=== PATIENT | female | born 2000 | race Caucasian/White ===

== ENCOUNTER 2020-02-14 20:25 | Emergency (ER) | payer OTHER ==
[2020-02-14 20:33] VITALS: RESP 18; TEMP 98.7
[2020-02-14] MEDS ORDERED: ACET/COD 300 MG/30 MG STARTER PACK 6 TAB BTL PO STA (20:40)
[2020-02-14] MEDS ORDERED: KETOROLAC 30 MG/ML 1 ML VIAL IM STA (20:40)
--- NOTE | 2020-02-14 21:28 | XR ---
EXAMINATION TYPE: XR knee complete LT DATE OF EXAM: 02/14/2020 COMPARISON: None HISTORY: Fall, pain TECHNIQUE: Three-view left knee FINDINGS: No acute fractures or dislocations are evident. Joint spaces are preserved. No joint effusi on is evident. IMPRESSION: 1. Normal three-view left knee
--- NOTE | 2020-02-14 21:46 | ED ---
Lower Extremity Injury HPI - General Chief Complaint: Extremity Injury, Lower Stated Complaint: Fall, knee pain Time Seen by Provider: 02/14/20 20:32 Source: patient, EMS Mode of arrival: EMS Limitations: no limitations - History of Present Illness Initial Comments: 19-year-old female patient arrives to the emergency department via EMS for left knee injury. Patient states that she was walking in her usual fashion when her knee gave out causing her to fall twisting the knee. Patient states she had immediate onset of severe pain. Patient states she's had surgery to the right knee, no history of injury or surgery to the left. Patient is reporting pain to the anterior knee just above the patella. States the pain is radiating down her leg. She denies numbness or tingling to the foot. She denies hitting her head or losing consciousness with the fall. Denies taking any medication for symptoms. Patient denies any headache, neck pain, back pain, chest pain, shortness of breath, dizziness, weakness, abdominal pain, nausea, vomiting, or difficulties with bowel movements or urination. - Related Data Home Medications Medication Instructions Recorded Confirmed ARIPiprazole [Abilify] 5 mg PO DAILY 03/28/16 03/28/16 Sertraline [Zoloft] 50 mg PO DAILY 03/28/16 03/28/16 Previous Rx's Medication Instructions Recorded Ibuprofen [Motrin] 600 mg PO Q8HR PRN #30 tab 02/14/20 Allergies Allergy/AdvReac Type Severity Reaction Status Date / Time No Known Allergies Allergy Verified 03/28/16 12:35 Review of Systems ROS Statement: Those systems with pertinent positive or pertinent negative responses have been documented in the HPI. ROS Other: All systems not noted in ROS Statement are negative. Past Medical History Past Medical History: No Reported History History of Any Multi-Drug Resistant Organisms: None Reported Past Surgical History: Orthopedic Surgery Additional Past Surgical History / Comment(s): right knee Past Psychological History: Depression, PTSD Smoking Status: Current every day smoker Past Alcohol Use History: Occasional Past Drug Use History: Marijuana General Exam Limitations: no limitations General appearance: alert, in no apparent distress, other (This is a well- developed, well-nourished adult female patient in no acute distress. Vital signs upon presentation are temperature 98.7F, pulse 81, respirations 18, blood pressure 121/72, pulse ox 100% on room air) Eye exam: Present: normal appearance, PERRL, EOMI. Absent: scleral icterus, conjunctival injection, periorbital swelling ENT exam: Present: normal exam, normal oropharynx, mucous membranes moist Respiratory exam: Present: normal lung sounds bilaterally. Absent: respiratory distress, wheezes, rales, rhonchi, stridor Cardiovascular Exam: Present: regular rate, normal rhythm, normal heart sounds. Absent: systolic murmur, diastolic murmur, rubs, gallop, clicks Extremities exam: Present: normal inspection, full ROM, tenderness (Left anterior knee and posterior knee. ), normal capillary refill, other (There is mild soft tissue swelling over the left knee. Skin to the left leg is pink, warm, dry. Cap refills less than 3 seconds. Pedal and posttibial pulses are 2+ and equal bilaterally.). Absent: pedal edema, joint swelling, calf tenderness Neurological exam: Present: alert, oriented X3, CN II-XII intact Psychiatric exam: Present: normal affect, normal mood Skin exam: Present: warm, dry, intact, normal color. Absent: rash Course Vital Signs 02/14/20 02/14/20 20:30 22:21 Temperature 98.7 F Pulse Rate 81 71 Respiratory 18 18 Rate Blood Pressure 121/72 122/71 O2 Sat by Pulse 100 98 Oximetry Medical Decision Making - Medical Decision Making 19-year-old female patient presented to the emergency department today for evaluation of left knee injury. Physical examination did reveal mild soft tissue swelling tenderness over the anterior posterior aspect of the knee. Neurovascular status was intact. X-ray was obtained and was unremarkable. We did discuss possibility of a tendon or ligament injury. Patient is placed in a knee immobilizer and instructed to follow-up with orthopedic specialty for further evaluation as soon as possible. She is given prescription for ibuprofen. She is instructed to follow up with her primary care physician for recheck in 1-2 days. Return parameters were discussed in detail. She verbalizes understanding and agrees with this plan. - Radiology Data Radiology results: report reviewed, image reviewed 3 views of the left knee are obtained. Report was reviewed in its entirety. Impression by Dr. Esquivel shows normal 3 view of the left knee. Disposition Clinical Impression: Strain of left knee Disposition: HOME SELF-CARE Condition: Good Instructions (If sedation given, give patient instructions): Knee Sprain (ED) Additional Instructions: Use knee immobilizer for comfort and support when ambulating. Apply ice to the knee 20 minutes at a time at least 4x daily. Take medication as directed. Follow-up with auditing specialist for further evaluation as soon as possible. Return to the emergency department immediately for any new, worsening, or concerning symptoms. Prescriptions: Ibuprofen [Motrin] 600 mg PO Q8HR PRN #30 tab PRN Reason: Pain Is patient prescribed a controlled substance at d/c from ED?: No Referrals: June Dong DO [Doctor of Osteopathic Medicine] - 1-2 days Time of Disposition: 21:46
[2020-02-14 22:30] VITALS: BP 122/71; PULSE 71
== END 2020-02-14 22:30 | disposition home or self-care (01) ==
LOC: EC 20:25
DX: S86.812A Strain of other muscle(s) and tendon(s) at lower leg level, left leg, initial encounter (principal); F32.9 Major depressive disorder, single episode, unspecified; F43.10 Post-traumatic stress disorder, unspecified; F17.200 Nicotine dependence, unspecified, uncomplicated; Z79.899 Other long term (current) drug therapy; X50.1XXA Overexertion from prolonged static or awkward postures, initial encounter; Y93.01 Activity, walking, marching and hiking
CPT/HCPCS: 99284; 96372; 73562; L1830; J1885

== ENCOUNTER → 2020-10-21 | Outpatient (CLI) | payer OTHER ==
--- NOTE | 2020-10-21 15:19 | US ---
EXAMINATION TYPE: US OB >= 14 wk fetus DATE OF EXAM: 10/21/2020 COMPARISON: CLINICAL HISTORY: Z36 CONFIRM DATES Confirm dates. Patient has not had a prior ultrasound. No pain o r spotting. TECHNIQUE: Transabdominal (TA) GESTATIONAL AGE / DATING Dates by LMP: (22 weeks/5 days) EDC: 02/19/2021 Dates by First Scan: No previous this is first scan Dates by Current Scan: (17 weeks/4 days) EDC: 03/27/2021 Beta HCG (if available): Not available at this time SURVEY IUP: Single PLACENTA: Posterior with hypoechoic lesion, possible placental doty= 2.6 x 2.7 x 1.6 cm PREVIA: No Previa. The inferior placental margin measures 3.2 cm from the internal cervical os. NANCY: 10.9 cm Low normal CERVICAL LENGTH (transabdominal: norm > 3.0cm): 3.6 cm BIOMETRY PRESENTATION: Vertex BPD: 4.2 cm 18 weeks / 4 days HC: 14.5 cm 17 weeks / 5 days AC: 11.4 cm 17 weeks / 1 days FL: 2.3 cm 17 weeks / 0 days ESTIMATED WEIGHT IN GRAMS: 183.3 grams ESTIMATED WEIGHT IN LBS/OZ: 0 lbs. 6 oz. EFW%: 3% HC/AC: 1.27 High normal FL/AC: 20.3 HEART RATE: 150 bpm RHYTHM: Normal Scoreboard Operator notes: Single live IUP measuring 17 weeks 4 days. IMPRESSION: 1. Single live intrauterine with estimated gestational age of 22 weeks 5 days by LMP. [facility] biometry is smaller and discordant at 17 weeks 4 days. 2. Posterior placenta without previa. However, there is a 2.7 cm hypoechoic area superiorly and towar ds the right located within the placenta. A placental doty, chorioangioma, and area of old placental hemorrhage are differential considerations. Follow-up recommended to reassess. 4. Given the discordance with the patient's LMP, corresponding EFW percentile measured at <3%, low no rmal NANCY, and high normal HC/AC, short interval follow-up is recommended. 5. In addition, complete survey recommended at 18-20 weeks.
== END | disposition home or self-care (01) ==
LOC: RADUSWWP 13:42
PROVIDERS: ATTEND Obstetrics & Gynecology
DX: O28.3 Abnormal ultrasonic finding on antenatal screening of mother (principal); Z3A.22 22 weeks gestation of pregnancy
CPT/HCPCS: 76805

== ENCOUNTER 2021-03-23 06:07 | Inpatient (IN) | payer OTHER ==
[2021-03-23] MEDS ORDERED: TERBUTALINE 1 MG/ML VIAL SQ PRN (07:05)
[2021-03-23] MEDS ORDERED: CARBOPROST TROMETHAMINE 250 MCG/ML 1 ML AMP IM PRN (07:05)
[2021-03-23] MEDS ORDERED: OXYTOCIN 10 UNIT/ML 1 ML VIAL IM PRN (07:05)
[2021-03-23] MEDS ORDERED: LIDOCAINE 0.5% (PF) 5 MG/ML (50 ML SDV) SQ PRN (07:05)
[2021-03-23] MEDS ORDERED: METHYLERGONOVINE 0.2 MG/ML 1 ML AMP IM PRN (07:05)
[2021-03-23] MEDS ORDERED: OXYTOCIN 30 UNITS/500 ML NS 30 UNIT in SALINE 1 500ML.BAG IV SCH ×2 (07:15→23:45)
[2021-03-23 07:29] LABS: Basophils # (A) 0.1 k/uL (0-0.2); Basophils % (A) 0 %; Eosinophils # (A) 0.1 k/uL (0-0.7); Eosinophils % (A) 1 %; HCT 34.8 % (34.0-46.0); HGB 12.1 gm/dL (11.4-16.0); Lymphocytes % (A) 20 %; MCHC 34.7 g/dL (31.0-37.0); MCV 83.6 fL (80.0-100.0); Mean Platelet Volume 6.9; Monocytes # (A) 0.7 k/uL (0-1.0); Monocytes % (A) 5 %; Neutrophils # (A) 11.1 k/uL (1.3-7.7); Neutrophils % (A) 73 %; Platelet Count 345 k/uL (150-450); RBC 4.16 m/uL (3.80-5.40); RDW 14.5 % (11.5-15.5); WBC 15.1 k/uL (4.0-11.0)
[2021-03-23] MEDS ORDERED: BUTORPHANOL 1 MG/ML 1 ML VIAL IV PRN (09:55)
[2021-03-23] MEDS ORDERED: fentaNYL (PF) 50 MCG/ML 5 ML AMP ONE (12:12)
[2021-03-23] MEDS ORDERED: ePHEDrine SULFATE/0.9% NACL/PF 50 MG/5 ML SYRINGE IV ONE (12:12)
[2021-03-23] MEDS ORDERED: ROPIVACAINE 5MG/ML 20ML VIAL ONE (12:12)
[2021-03-23] MEDS ORDERED: SODIUM CHLORIDE 0.9% 100 ML BAG ONE (12:12)
[2021-03-23] MEDS ORDERED: ROPIVACAINE 100 MG, fentaNYL (PF). 200 MCG in SODIUM CHLORIDE 0.9% 76 ML EPIDURAL ONE (13:30)
--- NOTE | 2021-03-23 16:30 | P.HPOB ---
History of Present Illness H&P Date: 03/23/21 Chief Complaint: Induction of Labor 20 year old presents at 39 weeks 3 days for induction of labor. Her cervix is 2/70/-1 and she is elmer every few minutes. heart tones 140 with moderate variability and reactive. Review of Systems All systems: negative Constitutional: Denies chills, Denies fever Eyes: denies blurred vision, denies pain Ears, nose, mouth and throat: Denies headache, Denies sore throat Cardiovascular: Denies chest pain, Denies shortness of breath Respiratory: Denies cough Gastrointestinal: Denies abdominal pain, Denies diarrhea, Denies nausea, Denies vomiting Genitourinary: Denies dysuria, Denies hematuria Musculoskeletal: Denies myalgias Integumentary: Denies pruritus, Denies rash Neurological: Denies numbness, Denies weakness Psychiatric: Denies anxiety, Denies depression Endocrine: Denies fatigue, Denies weight change Past Medical History Past Medical History: No Reported History History of Any Multi-Drug Resistant Organisms: None Reported Past Surgical History: Orthopedic Surgery Additional Past Surgical History / Comment(s): right knee Past Anesthesia/Blood Transfusion Reactions: No Reported Reaction Past Psychological History: No Psychological Hx Reported Smoking Status: Never smoker Past Alcohol Use History: None Reported, Occasional Past Drug Use History: None Reported - Past Family History Mother Family Medical History: No Reported History Medications and Allergies Home Medications Medication Instructions Recorded Confirmed Type No Known Home Medications 03/23/21 03/23/21 History Allergies Allergy/AdvReac Type Severity Reaction Status Date / Time No Known Allergies Allergy Verified 03/23/21 06:56 Exam Osteopathic Statement: *. No significant issues noted on an osteopathic structural exam other than those noted in the History and Physical/Consult. Vital Signs Temp Pulse Resp BP Pulse Ox 03/23/21 06:55 97.1 F L 96 16 124/72 96 Intake and Output 03/23/21 03/23/21 03/23/21 06:59 14:59 22:59 Output Total 500 Balance -500 Output: Urine 500 Other: # Voids 3 Weight 108.409 kg HEart: RRR Lungs: CTAB Abdomen: soft, nontender Extremeties: neg vidhi's Results Result Diagrams: 03/23/21 06:55 Abnormal Lab Results - Last 24 Hours (Table) 03/23/21 Range/Units 06:55 WBC 15.1 H (4.0-11.0) k/uL Neutrophils # 11.1 H (1.3-7.7) k/uL Assessment and Plan (1) Encounter for induction of labor Current Visit: Yes Status: Acute Code(s): Z34.90 - ENCNTR FOR SUPRVSN OF NORMAL , UNSP, UNSP TRIMESTER SNOMED Code(s): 183103674 Plan: 1. amniotomy and pitocin for induction of labor 2. anticipate normal vaginal delivery
[2021-03-23] MEDS: LACTATED RINGERS 1,000 ML IV SCH ×2 (19:07→23:58)
[2021-03-23] MEDS ORDERED: AMPICILLIN 2,000 MG in SODIUM CHLORIDE 0.9% 100 ML IVPB STA (19:25)
[2021-03-23] MEDS ORDERED: CITRIC ACID-SODIUM CITRATE 15 ML CUP PO ONE (22:19)
[2021-03-23] MEDS ORDERED: ONDANSETRON 4 MG/2 ML VIAL ONE (23:02)
[2021-03-23] MEDS ORDERED: HYDROmorphone (PF) 1 MG/ML ONE (23:02)
[2021-03-23] MEDS ORDERED: OXYTOCIN 30 UNITS/500 ML NS BAG IV ONE (23:02)
[2021-03-23] MEDS ORDERED: NALBUPHINE 10 MG/ML (1 ML AMP) ONE (23:02)
[2021-03-23] MEDS ORDERED: KETOROLAC 15 MG/ML 1 ML VIAL ONE (23:02)
[2021-03-23] MEDS ORDERED: MORPHINE SULFATE (PF) 0.3 MG/0.3 ML SYR ONE (23:02)
[2021-03-23] MEDS ORDERED: diphenhydrAMINE 25 MG CAP PO PRN (23:39)
[2021-03-23] MEDS ORDERED: SIMETHICONE 80 MG CHEWABLE PO PRN (23:39)
[2021-03-23] MEDS ORDERED: LANOLIN CREAM 5 GM TUBE TOPICAL PRN (23:39)
[2021-03-23] MEDS ORDERED: diphenhydrAMINE 50 MG/ML 1 ML VIAL IVP PRN ×2 (23:39)
[2021-03-23] MEDS ORDERED: METOCLOPRAMIDE 5 MG/ML 2 ML VIAL IVP PRN (23:39)
[2021-03-23] MEDS ORDERED: ZOLPIDEM 5 MG TAB PO PRN (23:39)
[2021-03-23] MEDS ORDERED: diphenhydrAMINE 50 MG CAP PO PRN (23:39)
[2021-03-23] MEDS ORDERED: NALOXONE 0.4 MG/ML 1 ML VIAL IV PRN (23:39)
[2021-03-23] MEDS ORDERED: ONDANSETRON 4 MG/2 ML VIAL IVP PRN (23:39)
--- NOTE | 2021-03-23 23:47 | P.OP ---
Date of Procedure: 03/23/21 Preoperative Diagnosis: 1. at 39 weeks 3 days 2. maternal fever 3. failure to progress 4. tachycardia Postoperative Diagnosis: 1. at 39 weeks 3 days 2. maternal fever 3. failure to progress 4. tachycardia Procedure(s) Performed: Primary low transverse Anesthesia: epidural Surgeon: Renetta Christianson Html Web Developer #1: Julisa Gore Estimated Blood Loss (ml): 500 IV fluids (ml): 1,000 Urine output (ml): 200 Pathology: none sent Condition: stable Disposition: floor Indications for Procedure: 20-year-old presents at 39 weeks and 3 days for induction of labor. Her cervix was 1-2 cm dilated, 70% effaced, -1 station. She is elmer irregularly. heart tones 140 with moderate variability and reactive. Amniotomy was performed around 7:30 in the morning and clear fluid noted. Pitocin was also started. She progressed slowly throughout the day when she is uncomfortable she did get an epidural. Her cervix dilated to 6 cm but didn't dilate any further despite adequate contractions for more than 2 hours. She also started to have a fever up to 100.5 and the baby showed some tachycardia in the 160s. Informed consent was obtained and section was called. Operative Findings: Viable male Apgars 8, 9, weight 6 lbs. 9 oz. Description of Procedure: Patient was taken to the operating room where spinal anesthesia was found be adequate. She was prepped and draped in normal sterile fashion in dorsal supine position with a leftward tilt. Pfannenstiel skin incision was made the scalpel and carried through to the underlying layer of fascia with the scalpel. Fascia was incised in midline and carried bilaterally with the Moss scissors. The superior aspect of the fascial incision was grasped with Reba clamps elevated and the underlying rectus muscles dissected off with the Moss's. Attention was then turned to inferior aspect of same incision which in a similar fashion was grasped tented up and the underlying rectus muscles dissected off with the Moss's. The rectus muscles were the midline and the peritoneum was identified tented up and entered sharply with the scalpel. The incision was extended superiorly and inferiorly with good visualization of the bladder. The bladder blade was inserted and the vesicouterine peritoneum was incised the Metzenbaums then carried bilaterally and bladder flap created digitally. A low transverse incision was then made on the uterus with the scalpel. This was carried bilaterally and digital manner. Infant's head delivered atraumatically, nose and mouth bulb suctioned, cord clamped and cut, infant handed off to waiting nurses. Apgars 8,9, weight 6 lbs. 9 oz. Placenta delivered manually, intact with three-vessel cord. The uterus is exteriorized and cleared of all clots and debris. The uterine incision was closed with 0 Vicryl in a running locked fashion. Second layer of the same sutures used in imbricating fashion to obtain excellent hemostasis. Both ovaries and tubes appeared normal. The uterus was placed back into the abdomen. The peritoneum was reapproximated using 2-0 Vicryl in a running fashion. The muscles were reapproximated using 2- 0 Vicryl in interrupted fashion. The fascia was reapproximated using 0 Vicryl in a running fashion. The subcutaneous tissues closed with 3-0 Vicryl running fashion. The skin was closed prisca. Patient tolerated the procedure well, sponge and instrument counts were correct times 2 and she was taken to the recovery room in stable condition.
[2021-03-24] MEDS ORDERED: AMPICILLIN 1,000 MG in SODIUM CHLORIDE 0.9% 50 ML IVPB SCH ×2
[2021-03-24 06:12] LABS: Basophils # (A) 0.1 k/uL (0-0.2); Basophils % (A) 0 %; Eosinophils % (A) 0 %; HCT 30.3 % (34.0-46.0); HGB 10.2 gm/dL (11.4-16.0); Lymphocytes # (A) 2.2 k/uL (1.0-4.8); Lymphocytes % (A) 12 %; MCH 28.7 pg (25.0-35.0); MCHC 33.8 g/dL (31.0-37.0); MCV 84.9 fL (80.0-100.0); Monocytes # (A) 0.6 k/uL (0-1.0); Monocytes % (A) 3 %; Neutrophils # (A) 15.1 k/uL (1.3-7.7); Neutrophils % (A) 83 %; Platelet Count 288 k/uL (150-450); RBC 3.57 m/uL (3.80-5.40); RDW 14.7 % (11.5-15.5); WBC 18.2 k/uL (4.0-11.0)
--- NOTE | 2021-03-24 08:15 | P.PN ---
Progress Note - Text Progress Note Date: 03/24/21 (161) Anesthesia Postop day 1 Subjective: Status Post section with Duramorph. Patient seen and examined. Doing well without complaint. VAS 2 out of 10. Nausea vomiting or pruritus. denies fever. Gross lower extremity strength intact. . Without apparent anesthetic complications. Objective: Vital signs reviewed Heart: Regular Rate Lungs: Good chest excursion Abdomen: Appears nondistended Assessment: Status post with Duramorph postop day 1 Plan: Continue current care with your medical management. Anticipated and the Duramorph around midnight tonight, you may see increased pain needs around this time.
[2021-03-24] MEDS: KETOROLAC 15 MG/ML 1 ML VIAL IVP SCH ×2 (09:01→15:08)
--- NOTE | 2021-03-24 09:01 | P.PNOBGPC ---
Subjective - Subjective Principal diagnosis: S/P 1*LTCS POD #1 Interval history: Patient seen and examined. Denies nausea, vomiting, chest pain, shortness of breath or any calf pain. She isn't having some difficulty with dizziness this moment getting out of bed but only in less than 12 hours since delivery. Patient reports: Reports appetite normal, Reports voiding normally, Reports pain well controlled [place]: doing well Objective - Vital Signs Latest vital signs: Vital Signs Temp Pulse Resp BP Pulse Ox 03/24/21 04:00 98.7 F 97 16 106/55 03/24/21 01:40 97.0 F L 101 H 16 102/57 96 03/24/21 01:10 105 H 16 110/61 95 03/24/21 00:40 111 H 16 115/63 95 03/24/21 00:25 93 16 107/56 96 03/24/21 00:10 88 16 105/58 93 L 03/23/21 23:55 98 16 114/59 93 L 03/23/21 23:40 99.4 F 90 16 110/53 94 L Intake and Output 03/23/21 03/24/21 03/24/21 22:59 06:59 14:59 Intake Total 16.45 Output Total 200 125 Balance -200 -108.55 Intake: Intake, IV Titration 16.45 Amount Oxytocin 30 Units/500 ml 16.45 Ns 30 unit In Saline 1 500ml.bag @ Per Protocol IV .Q0M [facility] Rx#:[id number] Output: Urine 200 125 - Exam Lungs: bilateral: normal Chest: Normal S1, Normal S2 Extremities: Present: normal Abdomen: Present: normal appearance, soft. Absent: distention, tenderness Incision: Present: normal, dry, intact Uterus: Present: normal, firm - Labs Labs: Abnormal Lab Results - Last 24 Hours (Table) 03/24/21 Range/Units 05:40 WBC 18.2 H (4.0-11.0) k/uL RBC 3.57 L (3.80-5.40) m/uL Hgb 10.2 L (11.4-16.0) gm/dL Hct 30.3 L (34.0-46.0) % Neutrophils # 15.1 H (1.3-7.7) k/uL Assessment and Plan (1) Encounter for induction of labor Current Visit: Yes Status: Resolved Code(s): Z34.90 - ENCNTR FOR SUPRVSN OF NORMAL , UNSP, UNSP TRIMESTER SNOMED Code(s): 003700684 (2) Status post primary low transverse section Current Visit: Yes Status: Acute Code(s): Z98.891 - HISTORY OF UTERINE SCAR FROM PREVIOUS SURGERY SNOMED Code(s): 644734271 Plan: 1. Continue IV antibiotics for 2 more doses 2. Slowly started ambulation 3. Pain control
[2021-03-24] MEDS: SENNOSIDES-DOCUSATE SODIUM 1 EACH TAB PO SCH ×2 (09:02→19:40)
[2021-03-24] MEDS: ACETAMINOPHEN TAB 500 MG TAB PO SCH ×4 (09:24→17:30)
[2021-03-24] MEDS: IBUPROFEN 600 MG TAB PO SCH ×4 (09:25→20:59)
[2021-03-24] MEDS: CEPHALEXIN 500 MG CAP PO SCH ×2 (17:23→22:01)
[2021-03-24 20:20] VITALS: RESP 16
[2021-03-24] MEDS: LACTATED RINGERS 1,000 ML IV SCH (20:22)
[2021-03-25] MEDS: ACETAMINOPHEN TAB 500 MG TAB PO SCH ×4 (00:27→22:34)
[2021-03-25] MEDS: IBUPROFEN 600 MG TAB PO SCH ×3 (03:07→19:18)
--- NOTE | 2021-03-25 07:53 | P.PNOBGPC ---
Subjective - Subjective Principal diagnosis: Status post primary low transverse postop day #2 Interval history: Patient seen and examined. Pain is a little worse today as a Duramorph has worn off. Denies nausea, vomiting, chest pain, shortness of breath or any calf pain. Patient reports: Reports appetite normal, Reports voiding normally, Reports pain well controlled, Reports ambulating normally : doing well Objective - Vital Signs Latest vital signs: Vital Signs Temp Pulse Resp BP Pulse Ox 03/25/21 00:00 98.2 F 104 H 16 88/65 03/24/21 20:00 98.2 F 97 16 106/60 97 03/24/21 15:46 97.8 F 105 H 18 108/76 97 03/24/21 11:51 97.7 F 109 H 18 93/63 99 03/24/21 09:18 97.8 F 116 H 18 105/73 96 Intake and Output 03/24/21 03/25/21 03/25/21 22:59 06:59 14:59 Other: # Voids 0 1 - Exam Lungs: bilateral: normal Chest: Normal S1, Normal S2 Extremities: Present: normal Abdomen: Present: normal appearance, soft. Absent: distention, tenderness Incision: Present: normal, dry, intact Uterus: Present: normal, firm Assessment and Plan (1) Encounter for induction of labor Current Visit: Yes Status: Resolved Code(s): Z34.90 - ENCNTR FOR SUPRVSN OF NORMAL , UNSP, UNSP TRIMESTER SNOMED Code(s): 060492183 (2) Status post primary low transverse section Current Visit: Yes Status: Acute Code(s): Z98.891 - HISTORY OF UTERINE SCAR FROM PREVIOUS SURGERY SNOMED Code(s): 950085030 Plan: 1. Increase ambulation 2. relationship consultant
[2021-03-25] MEDS: SENNOSIDES-DOCUSATE SODIUM 1 EACH TAB PO SCH ×2 (08:57→20:08)
[2021-03-25] MEDS: CEPHALEXIN 500 MG CAP PO SCH ×4 (08:57→22:34)
[2021-03-26] MEDS: IBUPROFEN 600 MG TAB PO SCH ×4 (01:59→13:36)
[2021-03-26] MEDS: ACETAMINOPHEN TAB 500 MG TAB PO SCH ×3 (05:06→17:44)
--- NOTE | 2021-03-26 07:27 | P.DS ---
Providers Date of admission: 03/23/21 06:07 Expected date of discharge: 03/26/21 Attending physician: Renetta Christianson Primary care physician: Stated None - Discharge Diagnosis(es) (1) Encounter for induction of labor Current Visit: Yes Status: Resolved (2) Status post primary low transverse section Current Visit: Yes Status: Acute Hospital Course: Patient presented for induction of labor. Underwent a primary low transverse C- section for tachycardia, maternal fever, failure to progress. Postoperatively her course was uncomplicated. She denies nausea, vomiting, chest pain, shortness of breath or any calf pain her pain is controlled with Motrin and Tylenol. Her lochia is decreasing, and her incision is clean, dry, intact with prisca. She will be discharged home postoperative day #3 in stable condition to follow-up with me in one week. Plan - Discharge Summary New Discharge Prescriptions: New Ibuprofen [Motrin] 600 mg PO Q6H #30 tab oxyCODONE HCL [OxyIR] 5 mg PO Q4HR PRN #10 tab PRN Reason: Pain Scale 4 - 6 Acetaminophen Tab [Tylenol] 1,000 mg PO Q6H #30 tab Discharge Medication List Acetaminophen Tab [Tylenol] 1,000 mg PO Q6H #30 tab 03/26/21 [Rx] Ibuprofen [Motrin] 600 mg PO Q6H #30 tab 03/26/21 [Rx] oxyCODONE HCL [OxyIR] 5 mg PO Q4HR PRN #10 tab 03/26/21 [Rx] Follow up Appointment(s)/Referral(s): Renetta Christianson DO [Doctor of Osteopathic Medicine] - 1 Week Discharge Disposition: HOME SELF-CARE
[2021-03-26] MEDS: CEPHALEXIN 500 MG CAP PO SCH ×3 (07:58→17:43)
[2021-03-26] MEDS: SENNOSIDES-DOCUSATE SODIUM 1 EACH TAB PO SCH (07:58)
[2021-03-26 16:11] VITALS: BP 109/74; PULSE 94; TEMP 98.1
== END 2021-03-26 19:05 | disposition home or self-care (01) | DRG 787 ==
LOC: 4FBP 06:07
PROVIDERS: ADMIT Obstetrics & Gynecology; ATTEND Obstetrics & Gynecology
PROC: 3E033VJ Introduction of Other Hormone into Peripheral Vein, Percutaneous Approach (ICD-10-PCS; principal; 2021-03-23 22:30)
PROC: 10907ZC Drainage of Amniotic Fluid, Therapeutic from Products of Conception, Via Natural or Artificial Opening (ICD-10-PCS; principal; 2021-03-23 22:30)
PROC: 10D00Z1 Extraction of Products of Conception, Low, Open Approach (ICD-10-PCS; principal; 2021-03-23 22:30)
DX: O76 Abnormality in fetal heart rate and rhythm complicating labor and delivery (principal); O75.2 Pyrexia during labor, not elsewhere classified; O62.2 Other uterine inertia; L29.9 Pruritus, unspecified; Z37.0 Single live birth; Z3A.39 39 weeks gestation of pregnancy
CPT/HCPCS: 85025; 86850; 86900; 86901

== ENCOUNTER 2021-07-23 07:13 | Emergency (ER) | payer OTHER ==
[2021-07-23] MEDS ORDERED: ONDANSETRON 4 MG/2 ML VIAL IVP STA (07:32)
[2021-07-23] MEDS ORDERED: HYDROmorphone 0.5 MG/0.5 ML SYRINGE IVP STA (07:32)
[2021-07-23] MEDS ORDERED: KETOROLAC 15 MG/ML 1 ML VIAL IVP STA (07:32)
[2021-07-23] MEDS ORDERED: SODIUM CHLORIDE 0.9% 2,000 ML IV ONE (07:38)
--- NOTE | 2021-07-23 07:56 | ED ---
General Adult HPI - General Chief complaint: Back Pain/Injury Stated complaint: PostOp Back Pain Time Seen by Provider: 07/23/21 07:22 Source: patient, RN notes reviewed Mode of arrival: wheelchair Limitations: no limitations - History of Present Illness Initial comments: 29-year-old female presents emergency Department with chief complaint right flank pain. Patient states she has some onset of pain patient states nothing makes the pain feel better or worse she's had nausea vomiting this morning associated. No dysuria no hematuria no urinary frequency denies any chance . Patient states she has sent section 3 months ago. No other prior abdominal surgeries. No fevers or chills. - Related Data Previous Rx's Medication Instructions Recorded Ketorolac [Toradol] 10 mg PO Q8HR #15 tab 07/23/21 Ondansetron Odt [Zofran Odt] 4 mg PO Q8HR PRN #10 tab 07/23/21 Tamsulosin [Flomax] 0.4 mg PO DAILY #7 cap 07/23/21 Allergies Allergy/AdvReac Type Severity Reaction Status Date / Time No Known Allergies Allergy Verified 07/23/21 09:25 Review of Systems ROS Statement: Those systems with pertinent positive or pertinent negative responses have been documented in the HPI. ROS Other: All systems not noted in ROS Statement are negative. Past Medical History Past Medical History: No Reported History History of Any Multi-Drug Resistant Organisms: None Reported Past Surgical History: Section, Orthopedic Surgery Additional Past Surgical History / Comment(s): right knee Past Anesthesia/Blood Transfusion Reactions: No Reported Reaction Past Psychological History: No Psychological Hx Reported Smoking Status: Never smoker Past Alcohol Use History: Occasional Past Drug Use History: None Reported - Past Family History Mother Family Medical History: No Reported History General Exam Limitations: no limitations General appearance: alert, in no apparent distress Head exam: Present: atraumatic, normocephalic, normal inspection Eye exam: Present: normal appearance, PERRL, EOMI. Absent: scleral icterus, conjunctival injection, periorbital swelling ENT exam: Present: normal exam, mucous membranes moist Neck exam: Present: normal inspection, full ROM. Absent: tenderness, meningismus, lymphadenopathy Respiratory exam: Present: normal lung sounds bilaterally. Absent: respiratory distress, wheezes, rales, rhonchi, stridor Cardiovascular Exam: Present: regular rate, normal rhythm, normal heart sounds. Absent: systolic murmur, diastolic murmur, rubs, gallop, clicks GI/Abdominal exam: Present: soft, normal bowel sounds. Absent: distended, tenderness, guarding, rebound, rigid Back exam: Absent: CVA tenderness (R), CVA tenderness (L) Skin exam: Present: warm, dry, intact, normal color. Absent: rash Course Vital Signs 07/23/21 07:16 Temperature 98.1 F Pulse Rate 94 Respiratory 20 Rate Blood Pressure 148/91 O2 Sat by Pulse 98 Oximetry Medical Decision Making - Medical Decision Making Patient has evidence of kidney stone. Labs otherwise unremarkable. Patient mo st likely has underlying hiatal hernia will follow palpation for this. Return parameters were discussed. - Lab Data Result diagrams: 07/23/21 07:43 07/23/21 07:43 Lab Results 07/23/21 07/23/21 07/23/21 Range/Units 07:43 07:43 07:43 WBC 10.0 (3.8-10.6) k/uL RBC 4.90 (3.80-5.40) m/uL Hgb 13.3 (11.4-16.0) gm/dL Hct 40.7 (34.0-46.0) % MCV 83.0 (80.0-100.0) fL MCH 27.2 (25.0-35.0) pg MCHC 32.8 (31.0-37.0) g/dL RDW 13.8 (11.5-15.5) % Plt Count 316 (150-450) k/uL MPV 7.0 Neutrophils % 63 % Lymphocytes % 28 % Monocytes % 5 % Eosinophils % 2 % Basophils % 1 % Neutrophils # 6.3 (1.3-7.7) k/uL Lymphocytes # 2.8 (1.0-4.8) k/uL Monocytes # 0.5 (0-1.0) k/uL Eosinophils # 0.2 (0-0.7) k/uL Basophils # 0.1 (0-0.2) k/uL Sodium (137-145) mmol/L Potassium (3.5-5.1) mmol/L Chloride (98-107) mmol/L Carbon Dioxide (22-30) mmol/L Anion Gap mmol/L BUN (7-17) mg/dL Creatinine (0.52-1.04) mg/dL Est GFR (CKD-EPI)AfAm (>60 ml/min/1.73 sqM) Est GFR (CKD-EPI)NonAf (>60 ml/min/1.73 sqM) Glucose (74-99) mg/dL Calcium (8.4-10.2) mg/dL Total Bilirubin (0.2-1.3) mg/dL AST (14-36) U/L ALT (4-34) U/L Alkaline Phosphatase (38-126) U/L Total Protein (6.3-8.2) g/dL Albumin (3.5-5.0) g/dL Lipase (23-300) U/L Urine Color Yellow Urine Appearance Cloudy H (Clear) Urine pH 6.0 (5.0-8.0) Ur Specific [place] 1.021 (1.001-1.035) Urine Protein Negative (Negative) Urine Glucose (UA) Negative (Negative) Urine Ketones Negative (Negative) Urine Blood Small H (Negative) Urine Nitrite Negative (Negative) Urine Bilirubin Negative (Negative) Urine Urobilinogen <2.0 (<2.0) mg/dL Ur Leukocyte Esterase Negative (Negative) Urine RBC 5 (0-5) /hpf Urine WBC 2 (0-5) /hpf Ur Squamous Epith Cells 8 H (0-4) /hpf Amorphous Sediment Rare H (None) /hpf Urine Bacteria Rare H (None) /hpf Urine Mucus Moderate H (None) /hpf Urine HCG, Qual Not Detected (Not Detectd) 07/23/21 Range/Units 07:43 WBC (3.8-10.6) k/uL RBC (3.80-5.40) m/uL Hgb (11.4-16.0) gm/dL Hct (34.0-46.0) % MCV (80.0-100.0) fL MCH (25.0-35.0) pg MCHC (31.0-37.0) g/dL RDW (11.5-15.5) % Plt Count (150-450) k/uL MPV Neutrophils % % Lymphocytes % % Monocytes % % Eosinophils % % Basophils % % Neutrophils # (1.3-7.7) k/uL Lymphocytes # (1.0-4.8) k/uL Monocytes # (0-1.0) k/uL Eosinophils # (0-0.7) k/uL Basophils # (0-0.2) k/uL Sodium 138 (137-145) mmol/L Potassium 3.6 (3.5-5.1) mmol/L Chloride 105 (98-107) mmol/L Carbon Dioxide 26 (22-30) mmol/L Anion Gap 7 mmol/L BUN 13 (7-17) mg/dL Creatinine 0.88 (0.52-1.04) mg/dL Est GFR (CKD-EPI)AfAm >90 (>60 ml/min/1.73 sqM) Est GFR (CKD-EPI)NonAf >90 (>60 ml/min/1.73 sqM) Glucose 110 H (74-99) mg/dL Calcium 9.8 (8.4-10.2) mg/dL Total Bilirubin 0.3 (0.2-1.3) mg/dL AST 24 (14-36) U/L ALT 21 (4-34) U/L Alkaline Phosphatase 96 (38-126) U/L Total Protein 6.8 (6.3-8.2) g/dL Albumin 3.8 (3.5-5.0) g/dL Lipase 42 (23-300) U/L Urine Color Urine Appearance (Clear) Urine pH (5.0-8.0) Ur Specific [place] (1.001-1.035) Urine Protein (Negative) Urine Glucose (UA) (Negative) Urine Ketones (Negative) Urine Blood (Negative) Urine Nitrite (Negative) Urine Bilirubin (Negative) Urine Urobilinogen (<2.0) mg/dL Ur Leukocyte Esterase (Negative) Urine RBC (0-5) /hpf Urine WBC (0-5) /hpf Ur Squamous Epith Cells (0-4) /hpf Amorphous Sediment (None) /hpf Urine Bacteria (None) /hpf Urine Mucus (None) /hpf Urine HCG, Qual (Not Detectd) Disposition Clinical Impression: Ureteral calculus, right Disposition: HOME SELF-CARE Condition: Stable Instructions (If sedation given, give patient instructions): Kidney Stones (ED) Additional Instructions: Please return to the Emergency Department if symptoms worsen or any other concerns. Prescriptions: Tamsulosin [Flomax] 0.4 mg PO DAILY #7 cap Ketorolac [Toradol] 10 mg PO Q8HR #15 tab Ondansetron Odt [Zofran Odt] 4 mg PO Q8HR PRN #10 tab PRN Reason: Nausea Is patient prescribed a controlled substance at d/c from ED?: No Referrals: Dayday Garay DO [Primary Care Provider] - 1-2 days Riccardo Washburn MD [STAFF PHYSICIAN] - 1-2 days Time of Disposition: 09:38
[2021-07-23 08:28] LABS: Basophils # (A) 0.1 k/uL (0-0.2); Basophils % (A) 1 %; Eosinophils # (A) 0.2 k/uL (0-0.7); Eosinophils % (A) 2 %; HCT 40.7 % (34.0-46.0); HGB 13.3 gm/dL (11.4-16.0); Lymphocytes # (A) 2.8 k/uL (1.0-4.8); Lymphocytes % (A) 28 %; MCH 27.2 pg (25.0-35.0); MCHC 32.8 g/dL (31.0-37.0); Monocytes # (A) 0.5 k/uL (0-1.0); Monocytes % (A) 5 %; Neutrophils # (A) 6.3 k/uL (1.3-7.7); Neutrophils % (A) 63 %; Platelet Count 316 k/uL (150-450); RDW 13.8 % (11.5-15.5)
[2021-07-23 08:56] LABS: ALT 21 U/L (4-34); AST 24 U/L (14-36); African American GFR (CKD) >90 (>60 ml/min/1.73 sqM); Albumin 3.8 g/dL (3.5-5.0); Alkaline Phosphatase 96 U/L (38-126); Anion Gap 7 mmol/L; Blood Urea Nitrogen 13 mg/dL (7-17); Calcium 9.8 mg/dL (8.4-10.2); Carbon Dioxide 26 mmol/L (22-30); Chloride 105 mmol/L (98-107); Glucose 110 mg/dL (74-99); Lipase 42 U/L (23-300); Non-African American GFR(CKD) >90 (>60 ml/min/1.73 sqM); Potassium 3.6 mmol/L (3.5-5.1); Sodium 138 mmol/L (137-145); Total Bilirubin 0.3 mg/dL (0.2-1.3); Total Protein 6.8 g/dL (6.3-8.2)
--- NOTE | 2021-07-23 09:14 | CT ---
EXAMINATION TYPE: CT abdomen pelvis wo con DATE OF EXAM: 07/23/2021 COMPARISON: None HISTORY: 21-year-old female Rt flank pain CT DLP: 1084.4 mGycm. Automated exposure control for dose reduction was used. TECHNIQUE: Contiguous axial scanning of the abdomen and pelvis without IV contrast. Coronal and sagit ten reconstructions performed. FINDINGS: Heart normal size without pericardial effusion. There is a rounded masslike opacity just above the GE junction measuring 3.1 cm, suspected a collapse d hiatal hernia. Nonspecific 4 mm peripheral left basilar pulmonary nodule. Noncontrast appearance of the liver, gallbladder, adrenal glands, left kidney, spleen with anterior s plenule, and pancreas show no gross abnormality. There is mild right-sided hydronephrosis and asymmetric right hydroureter with a 4 mm calculus at the right UVJ. No dilated small bowel, free fluid, or free air. Some scattered nonenlarged and borderline sized mesenteric lymph nodes are present especially cluster ed in the right lower quadrant measuring up to 6 mm, probably reactive/post inflammatory. Normal appendix. Mild stool within the right hemicolon and distal colon. No pericolonic inflammatory change. Mild circumferential bladder wall thickening. Uterus anteverted. Both ovaries are visualized. No abno rmal fluid collection in the pelvis or pelvic lymphadenopathy. Bones: Bone island right femoral neck. No osseous destructive process. IMPRESSION: 1. A 4 mm stone at the right UVJ with mild obstructive uropathy. 2. Mild circumferential bladder wall thickening. Correlate to exclude cystitis. 3. A 3.1 cm rounded masslike density just above the GE junction, suspected collapsed hiatal hernia. Correlate for any symptoms, such as gastroesophageal reflux. Outpatient barium swallow can confirm th e hiatal hernia. 4. Nonspecific 4 mm left basilar pulmonary nodule. Probably of little clinical significance in a pat ient of this age. Consideration can be given to a 12 month follow-up CT chest to reassess.
[2021-07-23 09:30] LABS: Amorphous Sediment,Urine Rare /hpf; Appearance,Urine Cloudy (Clear); Bacteria,Urine Rare /hpf; Bilirubin,Urine Negative (Negative); Blood,Urine Small (Negative); Color,Urine Yellow; Glucose,Urine (UA) Negative (Negative); Ketones,Urine Negative (Negative); Leukocyte Esterase,Urine Negative (Negative); Mucus,Urine Moderate /hpf; Nitrite,Urine Negative (Negative); Protein,Urine Negative (Negative); RBC,Urine 5 /hpf (0-5); Specific Gravity,Urine 1.021 (1.001-1.035); Squamous Epithelial Cell,Urine 8 /hpf (0-4); Urobilinogen,Urine <2.0 mg/dL (<2.0); WBC,Urine 2 /hpf (0-5)
[2021-07-23] MEDS ORDERED: ACET/COD 300 MG/30 MG STARTER PACK 6 TAB BTL PO STA (09:39)
[2021-07-23 10:05] VITALS: BP 132/78; PULSE 84; RESP 18; TEMP 98.2
== END 2021-07-23 10:04 | disposition home or self-care (01) ==
LOC: EC 07:13
DX: N20.2 Calculus of kidney with calculus of ureter (principal); Z79.899 Other long term (current) drug therapy
CPT/HCPCS: 36415; 80053; 83690; 85025; 81001; 81025; 74176; 99284; 96374; 96375 ×2; 96361 ×2; J2405; J1885; J1170

== ENCOUNTER 2021-10-07 07:36 | Day surgery (SDC) | payer OTHER ==
[2021-10-04 15:53] VITALS: BMI 36.6
[~2021-10-07 07:36] MED LIST: LACTATED RINGERS 1,000 ML IV SCH
[2021-10-07 08:08] VITALS: RESP 16; TEMP 97.3
[2021-10-07] MEDS ORDERED: LIDOCAINE 1% (10MG/ML) FOR IV START INTRADERMA ONE (08:15)
--- NOTE | 2021-10-07 08:31 | P.GSHP ---
History of Present Illness H&P Date: 10/07/21 Chief Complaint: GERD, hiatal hernia This a 21-year-old female who presents today for EGD. She patient had a recent CAT scan which shows a hiatal hernia. She's had some GERD symptoms. Past Medical History Past Medical History: Asthma Additional Past Medical History / Comment(s): HIATAL HERNIA History of Any Multi-Drug Resistant Organisms: None Reported Past Surgical History: Section, Orthopedic Surgery Additional Past Surgical History / Comment(s): right knee Past Anesthesia/Blood Transfusion Reactions: No Reported Reaction Past Psychological History: No Psychological Hx Reported Smoking Status: Never smoker Past Alcohol Use History: None Reported Past Drug Use History: None Reported - Past Family History Mother Family Medical History: No Reported History Medications and Allergies Home Medications Medication Instructions Recorded Confirmed Type No Known Home Medications 10/04/21 10/07/21 History Allergies Allergy/AdvReac Type Severity Reaction Status Date / Time No Known Allergies Allergy Verified 10/07/21 08:03 Surgical - Exam Vital Signs Temp Pulse Resp BP Pulse Ox 97.3 F L 95 16 115/81 97 10/07/21 08:06 10/07/21 08:06 10/07/21 08:06 10/07/21 08:06 10/07/21 08:06 - General well developed, well nourished, no distress - Eyes PERRL - ENT normal pinna - Neck no masses - Respiratory normal expansion - Cardiovascular Rhythm: regular - Abdomen Abdomen: soft, non tender Assessment and Plan Assessment: GERD. We'll perform EGD.
[2021-10-07] MEDS ORDERED: LIDOCAINE 1% INJ 10MG/ML (20 ML MDV) ONE (08:34)
[2021-10-07] MEDS ORDERED: PROPOFOL 10 MG/ML 20 ML VIAL IV ONE (08:34)
[2021-10-07] MEDS ORDERED: KETAMINE 10 MG/ML 20 ML VIAL ONE (08:34)
--- NOTE | 2021-10-07 08:48 | P.OP ---
Date of Procedure: 10/07/21 Preoperative Diagnosis: GERD Hiatal hernia Postoperative Diagnosis: Antral gastritis Sliding hiatal hernia Mild esophagitis Procedure(s) Performed: EGD Anesthesia: MAC Surgeon: Misael Diaz Pathology: other (Antrum, esophagus) Condition: stable Disposition: PACU Description of Procedure: The patient's placed on the endoscopy table in the lateral position. She received IV sedation. The gastroscope placed oropharynx passed in the esophagus and stomach. Scope was then placed through the pylorus. The first and second portion of the duodenum appeared normal. Scope was then brought back the antrum was mildly inflamed. A biopsies performed. The scope was then retroflexed and the remainder of the stomach appeared normal. There was a sliding hiatal hernia. The GE junction was at 38 cm. The distal esophagus was mildly inflamed. A biopsies performed. The proximal esophagus appeared normal. Scope withdrawn for patient.
[2021-10-07 09:13] VITALS: BP 114/78; PULSE 80
== END 2021-10-07 09:46 | disposition home or self-care (01) ==
LOC: ORWHC2ENDO 07:36
PROVIDERS: ATTEND Surgery
DX: K44.9 Diaphragmatic hernia without obstruction or gangrene (principal); J45.909 Unspecified asthma, uncomplicated; Z98.891 History of uterine scar from previous surgery; Z98.890 Other specified postprocedural states; E66.9 Obesity, unspecified; Z68.41 Body mass index [BMI] 40.0-44.9, adult
CPT/HCPCS: 88305; 43239; J2001; J2704

== ENCOUNTER 2021-11-01 06:41 | Observation (INO) | payer OTHER ==
[~2021-11-01 06:41] MED LIST changes: +ACETAMINOPHEN TAB 500 MG TAB PO PRN; +HEPARIN SODIUM,PORCINE/PF 5,000 UNIT/0.5 ML SYRINGE SQ PRN; -LACTATED RINGERS 1,000 ML IV SCH
[2021-11-01] MEDS ORDERED: SCOPOLAMINE 1.5MG/72HR PATCH TRANSDERM ONE (06:42)
[2021-11-01] MEDS ORDERED: DEXAMETHASONE SOD PHOSPHATE 4 MG/ML 1 ML VIAL IV ONE (06:42)
[2021-11-01] MEDS ORDERED: LIDOCAINE 1% (10MG/ML) FOR IV START INTRADERMA PRN (06:42)
[2021-11-01] MEDS: LACTATED RINGERS 1,000 ML IV SCH ×2 (07:25→11:10)
[2021-11-01] MEDS: ONDANSETRON 4 MG/2 ML VIAL IVP ONE ×2 (07:30→10:40)
[2021-11-01] MEDS ORDERED: GLYCOPYRROLATE 0.2 MG/ML 2 ML VIAL ONE (08:05)
[2021-11-01] MEDS ORDERED: NEOSTIGMINE 1 MG/ML 10 ML VIAL ONE (08:05)
[2021-11-01] MEDS ORDERED: LIDOCAINE 1% INJ 10MG/ML (20 ML MDV) ONE (08:05)
[2021-11-01] MEDS ORDERED: fentaNYL (PF) 50 MCG/ML 2 ML AMP ONE (08:05)
[2021-11-01] MEDS ORDERED: MIDAZOLAM 2 MG/2 ML VIAL ONE (08:05)
[2021-11-01] MEDS ORDERED: KETAMINE 10 MG/ML 20 ML VIAL ONE (08:05)
[2021-11-01] MEDS ORDERED: PROPOFOL 10 MG/ML 20 ML VIAL IV ONE (08:05)
[2021-11-01] MEDS ORDERED: ROCURONIUM 10 MG/ML (5 ML VIAL) IV ONE (08:05)
[2021-11-01] MEDS ORDERED: SUCCINYLCHOLINE CHLORIDE 100 MG/5 ML SYR IV ONE (08:05)
[2021-11-01] MEDS ORDERED: BUPIVACAINE (PF) 0.25% 30 ML VIAL SQ ONE (08:38)
[2021-11-01] MEDS ORDERED: ONDANSETRON 4 MG/2 ML VIAL IVP PRN (09:17)
--- NOTE | 2021-11-01 09:17 | P.GSHP ---
History of Present Illness H&P Date: 11/01/21 Chief Complaint: GERD This is a 21-year-old female for from Dr. leo. MThe patient has had long- standing problems with reflux esophagitis. The patient underwent recent EGD is found have evidence of esophagitis. Patient has been well informed on the procedure of laparoscopic Nicanor fundoplication. The patient is aware the risk of the conversion to the open procedure, risk of injury to the stomach, liver and spleen. The patient is also a risk of recurrent GERD and dysphagia symptoms. The patient understands there is a postoperative diet of full liquids for 2 weeks after surgery. Past Medical History Past Medical History: Asthma Additional Past Medical History / Comment(s): HIATAL HERNIA. KIDNEY STONE History of Any Multi-Drug Resistant Organisms: None Reported Past Surgical History: Section, Orthopedic Surgery Additional Past Surgical History / Comment(s): right knee SX, EGD Past Anesthesia/Blood Transfusion Reactions: No Reported Reaction Smoking Status: Former smoker - Past Family History Mother Family Medical History: No Reported History Medications and Allergies Home Medications Medication Instructions Recorded Confirmed Type No Known Home Medications 10/04/21 10/29/21 History Allergies Allergy/AdvReac Type Severity Reaction Status Date / Time No Known Allergies Allergy Verified 10/29/21 09:37 Surgical - Exam Vital Signs Temp Pulse Resp BP Pulse Ox 97 F L 76 20 143/81 97 11/01/21 07:35 11/01/21 07:35 11/01/21 07:35 11/01/21 07:35 11/01/21 07:35 - General well developed, well nourished, no distress - Eyes PERRL - ENT normal pinna - Neck no masses - Respiratory normal expansion - Cardiovascular Rhythm: regular - Abdomen Abdomen: soft, non tender Assessment and Plan Assessment: GERD. We'll perform laparoscopic Nicanor fundal plication.
[2021-11-01] MEDS: HYDROmorphone 0.5 MG/0.5 ML SYRINGE IVP PRN ×5 (09:20→10:10)
[2021-11-01] MEDS ORDERED: MEPERIDINE 50 MG/ML SYRINGE IVP ONE ×2 (10:35→10:53)
[2021-11-01] MEDS: HYDROmorphone 1 MG/ML 1 ML SYRINGE IVP PRN ×2 (16:09→20:03)
[2021-11-01] MEDS: D5-0.45% NACL WITH KCL 20MEQ/L 1,000 ML IV SCH (17:08)
--- NOTE | 2021-11-01 17:11 | FL ---
EXAMINATION TYPE: FL esophagus cervic/pharynx DATE OF EXAM: 11/01/2021 COMPARISON: None HISTORY: Post Brian fundoplication TECHNIQUE: A single contrast UGI study is performed with water-soluble contrast. FINDINGS: Contrast passes through the gastroesophageal junction with severe hesitancy. No extravasation of cont rast is evident. Gastroesophageal junction does open to allow passage of contrast. No free air is noted during this examination. Overhead radiographs were obtained which are unremarkable. Fluoroscopy time: 31 seconds Images: 84 IMPRESSIONS: 1. No extravasation of contrast post Brian fundoplication. 2. Severe hesitancy passing through the gastroesophageal junction level.
[2021-11-02] MEDS: HYDROmorphone 1 MG/ML 1 ML SYRINGE IVP PRN ×4 (00:19→18:12)
[2021-11-02] MEDS: D5-0.45% NACL WITH KCL 20MEQ/L 1,000 ML IV SCH ×4 (00:22→23:24)
[2021-11-02] MEDS: ENOXAPARIN 40 MG/0.4 ML SYRINGE SQ SCH (08:41)
[2021-11-02] MEDS ORDERED: HYDROmorphone 1 MG/ML 1 ML SYRINGE IVP PRN (10:03)
[2021-11-02] MEDS: HYDROcodone/APAP 5-325MG 1 EACH TAB PO PRN ×3 (10:11→23:23)
[2021-11-02] MEDS: DEXAMETHASONE SOD PHOSPHATE 4 MG/ML 1 ML VIAL IVP SCH ×3 (10:54→23:24)
--- NOTE | 2021-11-02 11:53 | P.CONS ---
History of Present Illness - Reason for Consult Consult date: 11/02/21 medical managment - History of Present Illness HISTORY OF PRESENT ILLNESS This is a 21-year-old female patient of Dr. Garay with past medical history of asthma and kidney stones. Patient has been brought in the hospital in the care of Dr. Diaz s/p laparoscopic Nicanor fundlplasty. Esophagram revealed no extravasation of contrast. Severe hesitancy passing through the gastroesophageal junction level. Patient has had no postop complications. She is currently on a clear liquid diet and tolerating with no nausea or vomiting. She did however have nausea yesterday which has resolved. Anticipate possible discharge home. REVIEW OF SYSTEMS Constitutional: No fever, no chills, no night sweats. No weight change. No weakness, fatigue or lethargy. No daytime sleepiness. EENT: No headache. No blurred vision or double vision, no loss of vision. No loss of Hearing, no ringing in the ears, no dizziness. No nasal drainage or congestion. No epistaxis. No sore throat. Lungs: No shortness of breath, cough, no sputum production. No wheezing. Cardiovascular: No chest pain, no lower extremity edema. No palpitations. No paroxysmal nocturnal dyspnea. No orthopnea. No lightheadedness or dizziness. No syncopal episodes. Abdominal: No abdominal pain. No nausea, vomiting. No diarrhea. No constipation. No bloody or tarry stools. No loss of appetite. Genitourinary: No dysuria, increased frequency, urgency. No urinary retention. Musculoskeletal: No myalgias. No muscle weakness, no gait dysfunction, no frequent falls. No back pain. No neck pain. Integumentary: No wounds, no lesions. No rash or pruritus. No unusual bruising. No change in hair or nails. Neurologic: No aphasia. No facial droop. No change in mentation. No head injury. No headache. No paralysis. No paresthesia. Psychiatric: No depression. No anxiety. No mood swings. Endocrine: No abnormal blood sugars. No weight change. SOCIAL HISTORY Patient was a smoker for 4 years at half pack per day and quit last year. She smokes marijuana sometimes. No alcohol use or illicit drug use. FAMILY HISTORY Mother has history of low blood pressure. Patient does not know her father. She has 2 brothers and 4 sisters with no major medical problems. Patient has one son with no major medical problems. PHYSICAL EXAMINATION Gen: This is a 21-year-old female patient. She is resting bed appears to be comfortable and in no acute distress. HEENT: Head is atraumatic, normocephalic. Pupils equal, round. Sclerae is anicteric. NECK: Supple. No JVD. No lymphadenopathy. No thyromegaly. LUNGS: Clear to auscultation. No wheezes or rhonchi. No intercostal retractions. HEART: Regular rate and rhythm. No murmur. ABDOMEN: Soft. Bowel sounds are present. No masses. No tenderness. Puncture sites show no sign of infection. EXTREMITIES: No pedal edema. No calf tenderness. NEUROLOGICAL: Patient is awake, alert and oriented x3. Cranial nerves 2 through 12 are grossly intact. ASSESSMENT AND PLAN 1. Gastroesophageal reflux disease status post Nicanor fundoplication, postop d ay #1. Continue current pain management per general surgery, clear liquid diet. 2. History of mild intermittent asthma not requiring medication. 3. History of kidney stones, stable. 4. DVT prophylaxis. Lovenox. DISCHARGE PLAN Home. Impression and plan of care have been directed as dictated by the signing physician. Amie Burks nurse practitioner acting as scribe for signing physician. Past Medical History Past Medical History: Asthma Additional Past Medical History / Comment(s): HIATAL HERNIA. KIDNEY STONE History of Any Multi-Drug Resistant Organisms: None Reported Past Surgical History: Section, Orthopedic Surgery Additional Past Surgical History / Comment(s): right knee SX, EGD Past Anesthesia/Blood Transfusion Reactions: No Reported Reaction Past Psychological History: No Psychological Hx Reported Smoking Status: Former smoker Past Alcohol Use History: None Reported Additional Past Alcohol Use History / Comment(s): QUIT SMOKING 2019 Past Drug Use History: None Reported - Past Family History Mother Family Medical History: No Reported History Medications and Allergies Home Medications Medication Instructions Recorded Confirmed Type No Known Home Medications 10/04/21 10/29/21 History Allergies Allergy/AdvReac Type Severity Reaction Status Date / Time No Known Allergies Allergy Verified 10/29/21 09:37 Physical Exam Vitals: Vital Signs Temp Pulse Resp BP Pulse Ox 11/02/21 07:59 98.5 F 55 L 16 106/66 98 11/02/21 02:26 98.1 F 61 15 107/59 98 11/01/21 19:58 98.0 F 61 16 108/72 98 11/01/21 14:33 97.8 F 66 126/77 97 11/01/21 13:45 65 16 130/63 98 11/01/21 13:15 62 16 128/62 98 11/01/21 12:45 65 16 110/59 99 11/01/21 12:15 54 L 16 109/60 99 11/01/21 12:00 70 16 106/59 99 11/01/21 11:45 61 16 120/65 98 11/01/21 11:30 53 L 16 109/55 98 11/01/21 11:15 60 16 111/58 98 11/01/21 11:00 65 16 111/59 97 11/01/21 10:45 51 L 16 117/74 98 11/01/21 10:30 52 L 16 115/74 99 11/01/21 10:15 61 16 121/74 99 11/01/21 10:00 47 L 16 115/69 99 11/01/21 09:45 58 L 16 113/68 99 11/01/21 09:30 59 L 16 128/73 100 Intake and Output 11/01/21 11/02/21 11/02/21 22:59 06:59 14:59 Intake Total 125 Balance 125 Intake: Intake, IV Titration 125 Amount D5-0.45% NaCl with KCl 125 20Meq/l 1,000 ml @ 125 mls/hr IV .Q8H [facility] Rx#: [id number] Other: Voiding Method Toilet # Voids 3 1
[2021-11-02 11:57] VITALS: BMI 39.6
--- NOTE | 2021-11-02 15:49 | P.PN ---
Subjective Progress Note Date: 11/02/21 CHIEF COMPLAINT: GERD HISTORY OF PRESENT ILLNESS: Status post laparoscopic Nicanor fundoplication postop day #1. Upper GI showing severe hesitancy passing through the GE junction. Patient's oral intake has been poor. She has been requiring IV Dilaudid for pain. Also reports some nausea. Patient seen and examined with Dr. andres PHYSICAL EXAM: VITAL SIGNS: Reviewed. GENERAL: Well-developed in no acute distress. HEENT: No sclera icterus. Extraocular movements grossly intact. Moist buccal mucosa. Head is atraumatic, normocephalic. ABDOMEN: Soft. Nondistended. NEUROLOGIC: Alert and oriented. Cranial nerves II through XII grossly intact. ASSESSMENT: 1. GERD status post laparoscopic Nicanor fundoplication 2. Severe hesitancy noted on upper GI PLAN: -Start IV Decadron for the severe hesitancy noted on upper GI -Continue Nicanor clear liquid diet -Continue pain medication as needed -Continue antiemetics -Encouraged patient to ambulate -Continue to monitor patient. Anticipate discharge tomorrow Physician Cardiovascular Rn note has been reviewed by physician. Signing provider agrees with the documented findings, assessment, and plan of care. Objective - Vital Signs Vital signs: Vital Signs Temp 98.5 F 11/02/21 07:59 Pulse 55 L 11/02/21 07:59 Resp 16 11/02/21 07:59 BP 106/66 11/02/21 07:59 Pulse Ox 98 11/02/21 07:59 Intake & Output 11/01/21 11/02/21 11/02/21 18:59 06:59 18:59 Intake Total 1575 Output Total 5 Balance 1570 Weight 98.2 kg 98.2 kg Intake: IV 1450 Intake, IV Titration 125 Amount D5-0.45% NaCl with KCl 125 20Meq/l 1,000 ml @ 125 mls/hr IV .Q8H [facility] Rx#: [id number] Output: Estimated Blood Loss 5 Other: Voiding Method Toilet # Voids 3 2
[2021-11-03] MEDS: DEXAMETHASONE SOD PHOSPHATE 4 MG/ML 1 ML VIAL IVP SCH ×2 (05:25→11:23)
[2021-11-03] MEDS: D5-0.45% NACL WITH KCL 20MEQ/L 1,000 ML IV SCH (05:26)
[2021-11-03] MEDS: HYDROcodone/APAP 5-325MG 1 EACH TAB PO PRN ×2 (05:26→09:42)
[2021-11-03] MEDS: LACTATED RINGERS 1,000 ML IV SCH (05:26)
[2021-11-03] MEDS: ENOXAPARIN 40 MG/0.4 ML SYRINGE SQ SCH (08:23)
[2021-11-03 08:43] VITALS: BP 107/74; PULSE 73; RESP 17; TEMP 98.6
--- NOTE | 2021-11-03 10:58 | P.DS ---
Providers Date of admission: 11/01/21 21:02 Expected date of discharge: 11/03/21 Attending physician: Misael Diaz Consults: 11/01/21 09:17 Consult Physician Routine Consulting Provider: Vance Church Consult Reason/Comments: Medical management Do you want consulting provider notified?: Yes Primary care physician: Dayday [facility] Course: Discharge diagnosis 1. GERD status post laparoscopic Nicanor fundoplication 2. Severe hesitancy noted on upper GI likely due to surgical edema. Improved with IV Decadron. Hospital course This is a 21-year-old female with history of GERD. She is status post laparoscopic Nicanor fundoplication. She tolerated surgery well. She did have severe has a D&C noted on upper GI. She was started on Decadron. She is tolerating Nicanor clear liquids. Her pain is controlled. She is up and ambulating. She is afebrile. She is stable for discharge. Please refer to chart for any further details. Physician Filter Bed Placer note has been reviewed by physician. Signing provider agrees with the documented findings, assessment, and plan of care. Patient Condition at Discharge: Stable Plan - Discharge Summary Discharge Rx Participant: Yes New Discharge Prescriptions: New HYDROcodone/APAP 5-325MG [[place] 5-325] 1 tab PO Q6HR PRN 3 Days #12 tab PRN Reason: Pain Docusate [Colace] 100 mg PO BID #30 capsule Discharge Medication List Docusate [Colace] 100 mg PO BID #30 capsule 11/03/21 [Rx] HYDROcodone/APAP 5-325MG [[place] 5-325] 1 tab PO Q6HR PRN 3 Days #12 tab 11/03/21 [Rx] Follow up Appointment(s)/Referral(s): Dayday Garay DO [Primary Care Provider] - 1 Week Misael Diaz MD [STAFF PHYSICIAN] - 1 Week Activity/Diet/Wound Care/Special Instructions: No driving while taking [place] No lifting over 10 pounds You may shower. No soaking or tub baths for 2 weeks Very light activity until you are reevaluated at your follow up appointment with your surgeon Discharge Disposition: HOME SELF-CARE
--- NOTE | 2021-11-03 11:35 | P.PN ---
Subjective Progress Note Date: 11/03/21 HISTORY OF PRESENT ILLNESS This is a 21-year-old female patient of Dr. Garay with past medical history of asthma and kidney stones. Patient has been brought in the hospital in the care of Dr. Diaz s/p laparoscopic Nicanor fundlplasty. Esophagram revealed no extravasation of contrast. Severe hesitancy passing through the gastroesophageal junction level. Patient has had no postop complications. She is currently on a clear liquid diet and tolerating with no nausea or vomiting. She did however have nausea yesterday which has resolved. Anticipate possible discharge home. 11/03: Patient states that she does have a little bit of chest pain and had pain with swallowing which is improved. She is tolerating clear liquid Nicanor diet. Patient has been afebrile, heart rate 73, blood pressure 107/74, pulse ox 99% on room air. Patient has no home medications to be reconciled. Anticipate discharge home today. REVIEW OF SYSTEMS Constitutional: No fever, no chills, no night sweats. No weight change. No weakness, fatigue or lethargy. No daytime sleepiness. EENT: No headache. No blurred vision or double vision, no loss of vision. No loss of Hearing, no ringing in the ears, no dizziness. No nasal drainage or congestion. No epistaxis. No sore throat. Lungs: No shortness of breath, cough, no sputum production. No wheezing. Cardiovascular: No chest pain, no lower extremity edema. No palpitations. No paroxysmal nocturnal dyspnea. No orthopnea. No lightheadedness or dizziness. No syncopal episodes. Abdominal: Reports chest/abdominal discomfort with swallowing, improved. No nausea, vomiting. No diarrhea. No constipation. No bloody or tarry stools. No loss of appetite. Genitourinary: No dysuria, increased frequency, urgency. No urinary retention. Musculoskeletal: No myalgias. No muscle weakness, no gait dysfunction, no frequent falls. No back pain. No neck pain. Integumentary: No wounds, no lesions. No rash or pruritus. No unusual bruising. No change in hair or nails. Neurologic: No aphasia. No facial droop. No change in mentation. No head injury. No headache. No paralysis. No paresthesia. Psychiatric: No depression. No anxiety. No mood swings. Endocrine: No abnormal blood sugars. No weight change. PHYSICAL EXAMINATION Gen: This is a 21-year-old female patient. She is resting bed appears to be comfortable and in no acute distress. HEENT: Head is atraumatic, normocephalic. Pupils equal, round. Sclerae is anicteric. NECK: Supple. No JVD. No lymphadenopathy. No thyromegaly. LUNGS: Clear to auscultation. No wheezes or rhonchi. No intercostal retractions. HEART: Regular rate and rhythm. No murmur. ABDOMEN: Soft. Bowel sounds are present. No masses. No tenderness. Puncture sites show no sign of infection. EXTREMITIES: No pedal edema. No calf tenderness. NEUROLOGICAL: Patient is awake, alert and oriented x3. Cranial nerves 2 through 12 are grossly intact. ASSESSMENT AND PLAN 1. Gastroesophageal reflux disease status post Nicanor fundoplication, postop day #2. Continue current pain management per general surgery, clear liquid Nicanor diet. 2. History of mild intermittent asthma not requiring medication. 3. History of kidney stones, stable. 4. DVT prophylaxis. Lovenox. DISCHARGE PLAN Home. Impression and plan of care have been directed as dictated by the signing physician. Amie Burks nurse practitioner acting as scribe for signing physician. Objective - Vital Signs Vital signs: Vital Signs Temp 98.6 F 11/03/21 08:00 Pulse 73 11/03/21 08:00 Resp 17 11/03/21 08:00 BP 107/74 11/03/21 08:00 Pulse Ox 99 11/03/21 08:00 Intake & Output 11/02/21 11/03/21 11/03/21 18:59 06:59 18:59 Intake Total 375 Balance 375 Weight 98.2 kg Intake: IV 375 D5-0.45% NaCl with KCl 375 20Meq/l 1,000 ml @ 125 mls/hr IV .Q8H MANGO Rx#: [id number] Other: Voiding Method Toilet Toilet # Voids 2 2
--- NOTE | 2021-11-09 08:38 | P.OP ---
Date of Procedure: 11/01/21 Preoperative Diagnosis: GERD Postoperative Diagnosis: .. GERD Procedure(s) Performed: Laparoscopic Nicanor fundoplication Anesthesia: BROOK Surgeon: Misael Diaz Estimated Blood Loss (ml): 5 Pathology: none sent Condition: stable Disposition: PACU Description of Procedure: [place] patient was placed on the operating table in the supine position. The patient received general anesthesia. And was placed in dorsal lithotomy position. The patient was prepped and draped in the usual sterile fashion. The skin incision sites were anesthetized with 1% local Xylocaine. The skin was incised in the left periumbilical area and then using a blade less 5 mm trocar under direct visualization panel cavity was entered. After adequate insufflation the laparoscope was then placed into the peritoneal cavity. Next a 5 mm trochars placed in the right epigastric position. Another 5 millimeter trocar the right lateral position. Another 5 millimeter trocar in the left lateral position a 5 mm trocar is placed in the left epigastric position. And then the initial 5 mm trocar was exchanged for a 10 mm trocar. The left lateral lobe liver was retracted. The hernia was seen. The crural defect was then dissected using the Harmonic scissors device. A 360 crural dissection was performed the esophagus stomach was reduced back into the peritoneal Cavity. The crural defect was then closed using 2-0 Ethibond suture. Next the fundus of the stomach was mobilized using the [place] scissors device. and then a 58- Swedish bougie dilator was placed oropharynx passed into the esophagus and stomach the fundal plication wrap was then performed by grasping the fundus p osteriorly and bringing it around the esophagus and stomach fundoplication was then performed using 2-0 Ethibond suture. Care was taken that the fundal location rested over top of the intra-abdominal esophagus. There was no injury seen to the stomach or esophagus. The dilator was then withdrawn. The abdomen was irrigated there is no bleeding seen. The trochars were then withdrawn and then skin incision sites were closed using 3-0 Monocryl suture Steri-Strips are applied. Patient thought procedure well and sent to recovery room in stable condition.
== END 2021-11-03 12:50 | disposition home or self-care (01) ==
LOC: OR 06:41 → 4SSUR 09:16 → OR 21:02 → 4SSUR 21:02
PROVIDERS: ADMIT Surgery; ATTEND Surgery
DX: K21.00 Gastro-esophageal reflux disease with esophagitis, without bleeding (principal); K44.9 Diaphragmatic hernia without obstruction or gangrene; K22.2 Esophageal obstruction; J45.20 Mild intermittent asthma, uncomplicated; R11.0 Nausea; Z87.891 Personal history of nicotine dependence; Z87.442 Personal history of urinary calculi; Z98.891 History of uterine scar from previous surgery; Z98.890 Other specified postprocedural states
CPT/HCPCS: 81025; 87635; 74210; 43280; G0378 ×3; J2250; J1100 ×3; J2710; J2175; J0690; J2405; J2001; J1650 ×2; J3010; J1170 ×3; J0330; J2704; Q9967

== ENCOUNTER → 2023-11-20 | Outpatient (CLI) | payer BC ==
--- NOTE | 2023-11-20 16:00 | US ---
EXAMINATION TYPE: US OB anatomy transabd DATE OF EXAM: 11/20/2023 COMPARISON: NONE CLINICAL INDICATION: Female, 23 years old with history of O36.62X0 MATERNAL CARE FOR EXCESS NIKI WTH, SE; Anatomy TECHNIQUE: Transabdominal (TA) EXAM MEASUREMENTS: GESTATIONAL AGE / DATING Physician Established: (18 weeks/6 days) EDC: 04/18/2024 Dates by LMP: Unknown Dates by First Scan: No previous this is first scan Dates by Current Scan for: (19 weeks/1 days) EDC: 04/14/2024 SURVEY IUP: Single PLACENTA: Anterior PREVIA: No previa. The placental margin measures approximately 2.5 cm from the internal cervical os. NANCY: 9.6 cm Normal CERVICAL LENGTH (transabdominal: norm > 3.0cm): 3.8 cm BIOMETRY PRESENTATION: longitudinal LIE: Transverse lie with head maternal R BPD: 4.2 cm 18 weeks / 6 days HC: 16.6 cm 19 weeks / 3 days AC: 13.5 cm 19 weeks / 0 days FL: 3.0 cm 19 weeks / 2 days ESTIMATED WEIGHT IN GRAMS: 274 grams ESTIMATED WEIGHT IN LBS/OZ: 0 lbs. 10 oz. WEIGHT PERCENTAGE BASED ON ESTABLISHED DATE: 60 % HC/AC: 1.21 Normal FL/AC: 22% Normal HEART RATE: 160 bpm RHYTHM: Normal There is a 2.7 cm hypoechoic/cystic area seen along the superficial side of the placenta. ANATOMY SEEN (within normal limits): Lateral Vent (< 1 cm) 0.8 cm Cisterna Magna (< 1.1 cm) 0.5 cm Nuchal Fold (< 0.6 cm) 0.3 cm Cerebellum (varies with age) 1.86 cm Choroid Plexus (bilateral) Midline Falx Cavus Septi Pellucidi Four Chamber Heart Stomach Situs Diaphragm Kidneys (bilateral) Bladder Cord Insert Three Vessel Cord Longitudinal Spine (some limitations due to abutment against the skin line. Appears normal after revi ew of multiple various images) Transverse Spine Arms (bilateral) Legs (Lt Femur/TibFib and Rt Femur) ANATOMY NOT SEEN (due to positioning): Outflow tracts: LVOT/RVOT Nose / Lips Legs (Rt TibFib) IMPRESSION: 1. Single live intrauterine with established gestational age of 18 weeks 6 days. Current ul trasound biometry is concordant (19 weeks 1 day) placing the child at the 60th percentile for weight. 2. A 2.7 cm hypoechoic/cystic structure along the superficial, side of the placenta. Possible p rominent venous doty. A small area of prior hemorrhage is also a consideration. Reassess at follow-up . 3. A few structures on the survey (outflow tracts, nose/lips, and the right TibFib were inadequ ately visualized). A rescan can be performed in 1 to 2 weeks for missed anatomy. Otherwise, the [facility] structures appear normal.
== END | disposition home or self-care (01) ==
LOC: RADUSWWP 12:29
PROVIDERS: ATTEND Obstetrics & Gynecology
DX: O36.62X0 Maternal care for excessive fetal growth, second trimester, not applicable or unspecified (principal); Z3A.19 19 weeks gestation of pregnancy
CPT/HCPCS: 76811

== ENCOUNTER → 2023-12-05 | Outpatient (CLI) | payer BC ==
--- NOTE | 2023-12-05 19:09 | US ---
EXAMINATION TYPE: US OB Call Back DATE OF EXAM: 12/05/2023 COMPARISON: NONE CLINICAL INDICATION: Female, 23 years old with history of Z36.2 CONFIRM GESTATIONAL AGE; OB call back for anatomy listed below GESTATIONAL AGE / DATING Dates by Initial Survey Scan: (21 weeks/0 days) EDC: 04/16/2024 HEART RATE: 163 bpm RHYTHM: Normal ANATOMY SEEN (second anatomic survey look): Outflow tracts:? LVOT/RVOT: wnl Nose / Lips: wnl Legs (bilateral): wnl IMPRESSION: Single intrauterine gestation additional anatomy appears within normal limits on the current ex amination. Cardiac activity measures 163 bpm.
== END | disposition home or self-care (01) ==
LOC: RADUSWWP 15:38
PROVIDERS: ATTEND Obstetrics & Gynecology
DX: Z53.9 Procedure and treatment not carried out, unspecified reason (principal)

== ENCOUNTER 2024-01-29 14:37 | Outpatient (CLI) | payer BC ==
[2024-01-29] MEDS: LACTATED RINGERS 1,000 ML IV ONE (15:25)
[2024-01-29 16:29] LABS: Basophils % (A) 0 %; Eosinophils # (A) 0.1 k/uL (0-0.7); Eosinophils % (A) 1 %; HCT 33.3 % (34.0-46.0); Lymphocytes # (A) 2.1 k/uL (1.0-4.8); Lymphocytes % (A) 19 %; MCH 28.7 pg (25.0-35.0); Mean Platelet Volume 8.2; Monocytes # (A) 0.5 k/uL (0-1.0); Monocytes % (A) 5 %; Neutrophils # (A) 8.1 k/uL (1.3-7.7); Neutrophils % (A) 74 %; Platelet Count 288 k/uL (150-450); RBC 3.82 m/uL (3.80-5.40); RDW 13.7 % (11.5-15.5); WBC 10.9 k/uL (3.8-10.6)
--- NOTE | 2024-01-29 17:38 | US ---
EXAMINATION TYPE: US OB >= 14 wk fetus DATE OF EXAM: 01/29/2024 COMPARISON: None CLINICAL INDICATION: Female, 23 years old with history of 28 6/7 weeks . growth perameters with BPP; TECHNIQUE: Real-time sector scanning sonography is performed over the gravid uterus. GESTATIONAL AGE / DATING Physician Established: (28 weeks/6 days) EDC: 04/16/2024 Dates by Current Scan: (33 weeks/2 days) EDC: 03/16/2024 Beta HCG (if available): Not available at this time SURVEY IUP: Single PLACENTA: Anterior PREVIA: No Previa NANCY: 23.8 cm Polyhydramnios CERVICAL LENGTH (transabdominal: norm > 3.0cm): 4.0 cm BIOMETRY PRESENTATION: Vertex BPD: 7.6 cm 30 weeks / 4 days HC: 31.4 cm 35 weeks / 2 days AC: 34.6 cm 38 weeks / 4 days FL: 5.4 cm 28 weeks / 5 days ESTIMATED WEIGHT IN GRAMS: 2549 grams ESTIMATED WEIGHT IN LBS/OZ: 5 lbs. 10 oz. WEIGHT PERCENTAGE BASED ON ESTABLISHED DATES: >98% HC/AC: 0.9 Abnormal FL/AC: 16% Abnormal HEART RATE: 146 bpm RHYTHM: Normal LMP 98 percentile During scan, fluid with visualized within abdomen such as thoracic cavity and ascites. Pos sible pericardial fluid. Thickened skin visualized around abdomen and head. Possible cleft lip, upp er and lower. Question hydrops, cystic hygroma? Doctor aware of critical findings IMPRESSION: 1. Single intrauterine gestation estimated at 33 weeks 2 days gestation based on current ultrasound m easurements. Cardiac activity measures 146 bpm. 2. ascites, pleural effusions, and possible pericardial fluid present. 3. Findings suggestive of cleft lip, both upper and lower. 4. Diffuse skin thickening. 5. Femur length to abdominal circumference ratio is diminished. Head circumference to abdominal circu mference ratio is diminished. 6. Polyhydramnios
--- NOTE | 2024-01-29 17:39 | US ---
EXAMINATION TYPE: US OB BPP wo non-stress DATE OF EXAM: 01/29/2024 COMPARISON: CLINICAL INDICATION: Female, 23 years old with history of 28 6/7weeks . no movement, non reacti ve NST; TECHNIQUE: Transabdominal (TA). Scoring by the curling machine operator during real-time assessment. FINDINGS: BPP PARAMETERS: PRESENTATION: Vertex HEART RATE: 146 bpm RHYTHM: Normal NANCY: 23.6 DIAPHRAGM IMAGED: Yes BPP SCORIN. Breathin (1 episode of breathing of 30 second duration in 30 minutes of scanning time) 2. Movement: 0 (at least 3 discrete body movements in 30 minutes) 3. Tone: 2 (1 episode of active flexion/extension of limb) 4. NANCY: 2 (NANCY index > 5cm) FIELD HUMAN RESOURCES MANAGER NOTES: see OB>14 weeks report performed same day IMPRESSION: TOTAL SCORE: 4 / 8
--- NOTE | 2024-01-29 18:37 | P.HPOB ---
History of Present Illness H&P Date: 01/29/24 Chief Complaint: IUP at 28 6/7 weeks, hydrops 23-year-old G2, P1 at 28 and 6, estimated due date of 8 6 based on last menstrual period and consistent with first trimester ultrasound. Patient presented to the office for routine visit and stated she had noted d ecreased movement for the last 2 days. Patient was sent to OB triage for continued monitoring. heart tones were noted to be category 2 therefore biophysical profile growth ultrasound was ordered. On ultrasound cleft lip and palate were appreciated along with polyhydramnios and ascites, pleural effusions were appreciated in addition. Patient had a 20-week ultrasound completed that was normal in nature. No maternity 21 testing was completed. She denies any recent illness no fevers no chills. SAP BUSINESS ANALYST history #1 LTCS secondary to nonreassuring heart tones, term , denies issues with . #2 current Review of Systems Constitutional: Denies chills, Denies fatigue, Denies fever Ears, nose, mouth and throat: Denies headache Cardiovascular: Reports leg edema Respiratory: Denies dyspnea Gastrointestinal: Denies constipation, Denies diarrhea, Denies nausea, Denies vomiting Genitourinary: Reports Past Medical History Past Medical History: Asthma Additional Past Medical History / Comment(s): HIATAL HERNIA History of Any Multi-Drug Resistant Organisms: None Reported Past Surgical History: Section, Orthopedic Surgery Additional Past Surgical History / Comment(s): right knee Past Anesthesia/Blood Transfusion Reactions: No Reported Reaction Smoking Status: Current some day smoker - Past Family History Mother Family Medical History: No Reported History Medications and Allergies Home Medications Medication Instructions Recorded Confirmed Type Vit No.179/Iron/Folic 1 tab PO DAILY 01/29/24 01/29/24 History [ Tablet] Allergies Allergy/AdvReac Type Severity Reaction Status Date / Time No Known Allergies Allergy Verified 01/29/24 15:14 Exam Osteopathic Statement: *. No significant issues noted on an osteopathic structural exam other than those noted in the History and Physical/Consult. Intake and Output 01/29/24 01/29/24 01/29/24 06:59 14:59 22:59 Other: Weight 99.79 kg Limited exam is done in general this is a well-nourished well-developed female in no acute distress, breathing is noted to be nonlabored, abdomen is gravid, cervical exam is deferred. heart tones are noted to be category 2 with variables. Results Result Diagrams: 01/29/24 16:18 Abnormal Lab Results - Last 24 Hours (Table) 01/29/24 Range/Units 16:18 WBC 10.9 H (3.8-10.6) k/uL Hgb 11.0 L (11.4-16.0) gm/dL Hct 33.3 L (34.0-46.0) % Neutrophils # 8.1 H (1.3-7.7) k/uL Assessment and Plan (1) 28 weeks gestation of Current Visit: Yes Status: Acute Code(s): Z3A.28 - 28 WEEKS GESTATION OF SNOMED Code(s): 19916255 (2) ascites Current Visit: Yes Status: Acute Code(s): QMD9491 - SNOMED Code(s): 937920358 (3) pleural effusion Current Visit: Yes Status: Acute Code(s): ALF6381 - SNOMED Code(s): 425888864 (4) Polyhydramnios Current Visit: Yes Status: Acute Code(s): O40.9XX0 - POLYHYDRAMNIOS, UNSP TRIMESTER, NOT APPLICABLE OR UNSP SNOMED Code(s): 89758353 Plan: 23-year-old G2, P1 at 28-6/7 weeks, estimated at 8 6. Patient with ultrasound findings of cleft lip and palate, ascites, pleural effusions. These findings are concerning for hydrops. Ultrasound findings are reviewed with patient in detail. Awaiting possible transfer for ultrasound findings.
[2024-01-29 20:15] VITALS: BP 128/74; PULSE 117; RESP 16; TEMP 98
== END 2024-01-29 19:05 ==
LOC: FBPOP 14:37
PROVIDERS: ATTEND Obstetrics & Gynecology
DX: O40.3XX1 Polyhydramnios, third trimester, fetus 1 (principal); O35 Maternal care for known or suspected fetal abnormality and damage; O36.8131 Decreased fetal movements, third trimester, fetus 1; O35.8XX1 Maternal care for other (suspected) fetal abnormality and damage, fetus 1; O99.333 Smoking (tobacco) complicating pregnancy, third trimester; J90 Pleural effusion, not elsewhere classified; Q37.9 Unspecified cleft palate with unilateral cleft lip; R18.8 Other ascites; F17.200 Nicotine dependence, unspecified, uncomplicated; Z3A.33 33 weeks gestation of pregnancy
CPT/HCPCS: 59025; 76805; 76819; 85025; 96360; 96361; 96365; 96367; 99214